=== PATIENT | male | born 1960 | race Caucasian/White ===

== ENCOUNTER → 2019-03-14 | Outpatient (CLI) | payer BC ==
--- NOTE | 2019-03-14 14:01 | KCIC ---
MRI Lumbar Spine without contrast History: Low back pain, bilateral radiculopathy Technique: Multiplanar, multi sequential noncontrast MR imaging was performed of the lumbar spine. Comparison: None Findings: Lumbar vertebral body stature and AP alignment are maintained. Conus terminates near T12-L1. There is no significant marrow edema. There is likely Tarlov cyst at S2 centrally about 1.2 cm. There is [id number] degenerative disc disease at L4-5 and minimally at L3-4. Trace posterior L3-4 endplate edema is likely reactive/degenerative in etiology. There are posterior annular tears L3-4, L4-5, and L5-S1. L1-L2: This level was not included on axial images, neural foramina and spinal canal overall adequate. L2-L3: Neural foramina and spinal canal are adequate. L3-L4: There is minimal disc osteophyte complex greatest centrally with minimal indentation upon the ventral thecal sac without significant neural impingement or spinal stenosis. There is mild prominence of posterior epidural fat centrally. Neural foramina are adequate. L4-L5: There is minimal disc osteophyte complex and superimposed shallow protrusion about 2-3 mm AP greatest centrally, mild indentation upon the ventral thecal sac. There is mild buckling of the ligamentum flavum and mild to moderate facet degenerative change. There is moderate narrowing of the far lateral recesses somewhat greater on the left, central canal not significantly narrowed. Neural foramina are overall adequate. L5-S1: There is prominence of epidural fat in the lateral recesses bilaterally, preserved central subarachnoid space. Spinal canal is overall adequate. There is minimal facet degenerative change. Neural foramina are adequate. Impression: 1. There is moderate narrowing of the far lateral recesses greater on the left at L4-5. There is no significant lumbar neural foramina compromise. There is [id number] degenerative disc disease at L4-5 and minimally at L3-4, spondylosis at these levels. 2. There is likely Tarlov cyst centrally at S2. Electronically signed by: Romeo Lozoya MD (03/14/2019 1:58 PM) [id number]
== END | disposition home or self-care (01) ==
LOC: KCIC MRI 10:49
PROVIDERS: ATTEND Family Medicine
DX: M51.17 Intervertebral disc disorders with radiculopathy, lumbosacral region (principal); M47.27 Other spondylosis with radiculopathy, lumbosacral region; M48.061 Spinal stenosis, lumbar region without neurogenic claudication; M25.78 Osteophyte, vertebrae; F40.240 Claustrophobia
CPT/HCPCS: 72148